=== PATIENT | female | born 1950 | race Caucasian/White ===

== ENCOUNTER → 2017-12-20 | Outpatient (CLI) | payer MEDICARE, OTHER | END | disposition home or self-care (01) | LOC: SLPLAB 18:07 | DX: G47.33 Obstructive sleep apnea (adult) (pediatric) (principal) | CPT/HCPCS: 95810 ==

== ENCOUNTER → 2020-09-14 | Outpatient (CLI) | payer MEDICARE, OTHER ==
[~2020-09-14] MED LIST: AMIT50TA PO; ATOR20TA58 PO; CARI350T14 PO; FLUT1DIS IH; GABA600T7 PO; MELO15TA23 PO; MONT10TA49 PO; PANT40TA77 PO; TIOT18CA IH
== END ==
LOC: LAB 14:47
PROVIDERS: ATTEND Internal Medicine Cardiovascular Disease
DX: Z01.812 Encounter for preprocedural laboratory examination (principal); R06.00 Dyspnea, unspecified; Z20.828 Contact with and (suspected) exposure to other viral communicable diseases
CPT/HCPCS: U0003

== ENCOUNTER 2020-09-16 06:41 | Outpatient (CLI) | payer MEDICARE, OTHER ==
[2020-09-16] VITALS (16 sets, daily range): BP systolic 111–150; BP diastolic 60–83
[~2020-09-16] VITALS: Ht 162.6 cm; Wt 83.5 kg
[2020-09-16 07:24] LABS: HEMATOCRIT 38.4 % (36.0-47.0); HEMOGLOBIN 13.1 g/dL (12.0-15.5); RED BLOOD COUNT 4.13 x10^6/uL (3.50-5.40); RED CELL DISTRIBUTION WIDTH 13.7 % (11.5-14.5); WHITE BLOOD COUNT 5.6 x10^3/uL (4.0-11.0)
[2020-09-16] MEDS ORDERED: TIOT18CA IH (07:28)
[2020-09-16] MEDS ORDERED: AMIT50TA PO (07:28)
[2020-09-16] MEDS ORDERED: MELO15TA23 PO (07:28)
[2020-09-16] MEDS ORDERED: GABA600T7 PO (07:28)
[2020-09-16] MEDS ORDERED: MONT10TA49 PO (07:28)
[2020-09-16] MEDS ORDERED: PANT40TA77 PO (07:28)
[2020-09-16] MEDS ORDERED: CARI350T14 PO (07:28)
[2020-09-16] MEDS ORDERED: FLUT1DIS IH (07:28)
[2020-09-16] MEDS ORDERED: ATOR20TA58 PO (07:28)
[2020-09-16 07:33] LABS: PROTHROMBIN TIME PATIENT 12.9 SEC (11.7-14.0)
[2020-09-16] MEDS ORDERED: IODIXANOL 320 MG/ML 100 ML VIAL. ONE (07:37)
[2020-09-16] MEDS ORDERED: HEPARIN for ARTERIAL LINE 1,500 ML ONE (07:37)
[2020-09-16] MEDS ORDERED: LIDOCAINE 1% Multi-Dose 20 ML VIAL. ONE (07:37)
[2020-09-16 07:41] LABS: CALCIUM 9.4 mg/dL (8.5-10.1); POTASSIUM 3.9 mmol/L (3.5-5.1)
[2020-09-16] MEDS ORDERED: MIDAZOLAM HCL/PF 2 MG/2 ML VIAL. ONE (08:17)
[2020-09-16] MEDS ORDERED: fentaNYL PF VIAL 100 MCG/2 ML VIAL ONE (08:17)
[2020-09-16] MEDS ORDERED: VERAPAMIL 5 MG/2 ML VIAL. ONE (08:17)
[2020-09-16] MEDS ORDERED: NITROGLYCERIN 200 MCG/2 ML SYRINGE FOR CATH/VASC LAB. ONE (08:17)
[2020-09-16] MEDS ORDERED: HEPARIN for IV BOLUS 10,000 UNIT/10 ML VIAL. ONE (08:17)
--- NOTE | 2020-09-16 08:38 | PDOC ---
MODERATE SEDATION ASSESSMENT RISKS/ALTERNATIVES Risks/Alternatives Risks and alternatives of this type of sedation and procedure discussed with: RISK/ALTERNATIVES: Patient H & P ON CHART H & P H & P on chart and reviewed for co-morbid conditions and appropriate labs. H&P ON CHART: Yes STATUS PREG STATUS ASSESSED: N/A MEDS/ALLERGIES REVIEWED Meds/Allergies Reviewed Medications and Allergies including time and route of recently administered narcotics and sedatives. MEDS/ALLERGIES REVIEWED: Yes ASA RATING ASA RATING: II AIRWAY ASSESSMENT Airway Assessment Airway patency, oral function limitations, presence of caps, crowns, dentures, partials, and ability to extend neck assessed. AIRWAY ASSESSMENT: Yes MALLAMPATI SCORE MALLAMPATI SCORE: II PRE-SEDATION ASSESSMENT PRE-SEDATION ASSESSMENT: Yes KIERA DAWN MD Sep 16, 2020 08:38
[2020-09-16] MEDS ORDERED: LIDOCAINE 1% Multi-Dose 20 ML VIAL. INJ ONE (09:00)
[2020-09-16] MEDS ORDERED: fentaNYL PF VIAL 100 MCG/2 ML VIAL IV ONE (09:00)
[2020-09-16] MEDS ORDERED: HEPARIN for IV BOLUS 10,000 UNIT/10 ML VIAL. IART ONE (09:00)
[2020-09-16] MEDS ORDERED: VERAPAMIL 5 MG/2 ML VIAL. IART ONE (09:00)
[2020-09-16] MEDS ORDERED: MIDAZOLAM HCL/PF 2 MG/2 ML VIAL. IV ONE (09:00)
[2020-09-16] MEDS ORDERED: IODIXANOL 320 MG/ML 100 ML VIAL. IART ONE (09:00)
[2020-09-16] MEDS ORDERED: NITROGLYCERIN 200 MCG/2 ML SYRINGE FOR CATH/VASC LAB. IART ONE (09:00)
--- NOTE | 2020-09-16 10:18 | CARD ---
MR#: [id number] Date of Study: 09/16/2020 Ordering Physician: KIERA SALAZAR, Referring Physician: KIERA SALAZAR, Tech: RT Brandon (R) APPROVED REPORT Technologist: Radha Lindquist RT (R) Nurse: Kelsea Valencia RN Procedure(s) performed: fl time: 9.5 mins dose: 73 gycm2 contrast: 92 ml moderate sedation: 50 mins LHC, RHC, coronary angiography HISTORY The patient is a 70 year-old female with a history of : tobacco history() , hypertension, dyslipidemi a. INDICATION The indication(s) include : unstable angina , dyspnea. [facility] Clinical Frailty Scale [facility] Clinical Frailty Scale: Moderately Frail Heart Failure Heart Failure: Yes If Yes, Newly Diagnosed: No If Yes, HF Type: Diastolic If Yes, NYHA Class: Class II PROCEDURE NARRATIVE After appropriate informed consent the patient was brought to the catheterization laboratory and the right wrist and right neck were prepped and draped in usual sterile fashion. Under 2% lidocaine local anesthesia a 6 Cuban sheath was placed in the right radial artery and a 5 F rench sheath was placed in the right internal jugular vein via ultrasound fluoroscopic guidance. Diagnostic angiography was performed with a 6 Cuban TIG catheter, 6 Cuban JL 3.5 catheter and a 6 F rench 3.0 EBU guide catheter. Left ventricular end-diastolic pressure was obtained with the TIG cath eter. Right heart catheterization was performed with a 5 Cuban PA catheter and pressures and saturations w ere obtained. At case completion the right radial sheath was removed and hemostasis was achieved with a radial band . The right IJ sheath was removed and hemostasis was achieved with manual compression. No acute complications are noted. Findings: Hemodynamics: RA 5 mmHg RV 29/6 PA 30/12 Wedge 12 Cardiac output 5.6 L/min by Jerome method PA saturation 80.1%, FA saturation 98% Aorta: 106/68 Coronary angiography: Left main: Near separate ostia of the circumflex and LAD. LAD is a moderate caliber vessel with mild luminal irregularities. The distal LAD was not well visua lized. Left circumflex is a very large caliber dominant vessel with mild luminal irregularities OM1 is a moderate caliber vessel with normal angiographic appearance LPL 1 is a small caliber vessel with normal angiographic appearance L PDA is a moderate caliber vessel with normal angiographic appearance RCA is a small caliber nondominant vessel with normal angiographic appearance Conclusion 1. Normal biventricular filling pressures 2. No significant pulmonary hypertension 3. Normal cardiac output 4. No evidence of significant coronary disease Signed by : Kiera Salazar, Electronically Approved : 09/16/2020 10:17:46
--- NOTE | 2020-09-16 12:55 | NUR ---
Discharge Note: ELVER JERRY Discharge instructions and discharge home medications reviewed with Patient and a copy given. All questions have been answered and understanding verbalized. The following instructions and handouts were given: RADIAL SITE CARE AND MODERATE SEDATION Discontinued LEFT PERIPHERAL IV, BAND AID APPLIED AND RIGHT RADIAL DRESSING CHANGED AND ARMBAND REAPPLIED. Patient discharged to HOME WITH HER SPOUSE VIA PRIVATE VEHICLE.
--- NOTE | 2020-09-16 13:29 | CARD ---
MR#: [id number] Date of Study: 09/16/2020 Ordering Physician: ALIN SALAZAR, Referring Physician: ALIN SALAZAR, Tech: Kait Ross APPROVED REPORT EXAM: Two-dimensional and M-mode echocardiogram with Doppler and color Doppler. Other Information Quality : AverageHR: 83bpm INDICATION Dyspnea RISK FACTORS Hypertension Hyperlipidemia Smoking 2D DIMENSIONS RVDd3.1 (2.9-3.5cm)Left Atrium(2D)3.3 (1.6-4.0cm) IVSd1.1 (0.7-1.1cm)Aortic Root(2D)3.2 (2.0-3.7cm) LVDd5.0 (3.9-5.9cm)LVOT Diameter2.0 (1.8-2.4cm) PWd1.0 (0.7-1.1cm)LVDs3.6 (2.5-4.0cm) FS (%) 27.7 %SV64.2 ml LVEF(%)53.6 (>50%) Aortic Valve AoV Peak Naveed.137.3cm/sAoV VTI23.0cm AO Peak GR.7.5mmHgLVOT VTI 21.27cm AO Mean GR.4mmHg Mitral Valve MV E Adtfalku04.7cm/sMV A Watpxzbc845.0cm/s E/A Ratio0.6 TDI Lateral E' P. V4.31cm/sMedial E' P. V5.86cm/s E/Lateral E'18.3E/Medial E'13.4 Tricuspid Valve TR P. Gucgzvki607pn/sRAP DOWSDEAB5enMv TR Peak Gr.40dfRjAHAC92nfNe Pulmonary Vein S1 Iwclqsho07.6cm/sS2 Bcdholdd14.47cm/s D2 Ifszthro69.5cm/sPVa [id number] LEFT VENTRICLE The left ventricle is normal size. There is normal left ventricular wall thickness. The left ventricu lar systolic function is low normal. The Ejection Fraction is 45-50%. There is mild global hypokinesi s of the left ventricle. Transmitral Doppler flow pattern is Grade I-abnormal relaxation pattern. RIGHT VENTRICLE The right ventricle is normal size. There is normal right ventricular wall thickness. The right ventr icular systolic function is normal. ATRIA The left atrium size is normal. The right atrium size is normal. The interatrial septum is intact wit h no evidence for an atrial septal defect or patent foramen ovale as noted on 2-D or Doppler imaging. AORTIC VALVE The aortic valve is thickened but opens well. Doppler and Color Flow revealed no significant aortic r egurgitation. There is no significant aortic valvular stenosis. Calculated aortic valve area is 2.43 cm2 with maximum pressure gradient of 9 mmHg and mean pressure gradient of 6 mmHg. MITRAL VALVE The mitral valve is normal in structure and function. There is no evidence of mitral valve prolapse. There is no mitral valve stenosis. Doppler and Color Flow revealed no mitral valve regurgitation note d. TRICUSPID VALVE The tricuspid valve is normal in structure and function. Doppler and Color Flow revealed trace tricus pid regurgitation with an estimated PAP of 40 mmHg. There is no tricuspid valve stenosis. PULMONIC VALVE The pulmonic valve is not well visualized. Doppler and Color Flow revealed no pulmonic valvular regur gitation. There is no pulmonic valvular stenosis. GREAT VESSELS The aortic root is mildly enlarged measuring 3.58 cm. Ascending aorta measuring 3.45 cm. The IVC is n ormal in size and collapses >50% with inspiration. PERICARDIAL EFFUSION There is no evidence of significant pericardial effusion. Critical Notification Critical Value: No <Conclusion> The left ventricular systolic function is low normal. The Ejection Fraction is 45-50%. There is mild global hypokinesis of the left ventricle. Signed by : Alin Salazar, Electronically Approved : 09/16/2020 13:28:32
== END 2020-09-16 13:13 | disposition home or self-care (01) ==
LOC: CCL 06:41
PROVIDERS: ATTEND Internal Medicine Cardiovascular Disease
DX: I20.0 Unstable angina (principal); I10 Essential (primary) hypertension; E78.00 Pure hypercholesterolemia, unspecified; J44.9 Chronic obstructive pulmonary disease, unspecified; K21.9 Gastro-esophageal reflux disease without esophagitis; M19.90 Unspecified osteoarthritis, unspecified site; Z90.49 Acquired absence of other specified parts of digestive tract; Z90.710 Acquired absence of both cervix and uterus; Z98.890 Other specified postprocedural states; Z79.899 Other long term (current) drug therapy; Z87.891 Personal history of nicotine dependence
CPT/HCPCS: 36415; 76937; 80048; 85027; 85610; 93306; 93460; 99152; 99153; C1769; C1773; C1887; C1892; J1644; J2250; J3010; J3490; Q9967